=== PATIENT | female | born 1955 | race Caucasian/White ===

== ENCOUNTER 2017-04-20 12:54 | Emergency (ER) | payer MEDICARE, MEDICAID ==
[2017-04-20] MEDS ORDERED: Adacel (T-DAP) 0.5 ML VIAL ONE (14:12)
[2017-04-20] MEDS ORDERED: Bacitracin Zinc 1 Packet ONE (14:16)
== END 2017-04-20 14:28 | disposition home or self-care (01) ==
LOC: ERS 12:54
DX: S61.011A Laceration without foreign body of right thumb without damage to nail, initial encounter (principal); J44.9 Chronic obstructive pulmonary disease, unspecified; F32.9 Major depressive disorder, single episode, unspecified; E78.00 Pure hypercholesterolemia, unspecified; F17.210 Nicotine dependence, cigarettes, uncomplicated; Z79.899 Other long term (current) drug therapy; X58.XXXA Exposure to other specified factors, initial encounter
CPT/HCPCS: 90471; 90715

== ENCOUNTER 2017-07-05 08:38 | Outpatient (CLI) | payer MEDICARE, MEDICAID | END 2017-07-05 08:39 | disposition home or self-care (01) | LOC: BICULT 08:38 | PROVIDERS: ATTEND Urology | DX: N28.1 Cyst of kidney, acquired (principal) | CPT/HCPCS: 76770 ==

== ENCOUNTER 2017-10-23 13:02 | Outpatient (CLI) | payer MEDICARE, MEDICAID ==
--- NOTE | 2017-10-23 13:52 | RAD ---
PA AND LATERAL CHEST: History: Dyspnea. FINDINGS: Comparison is made with exam 01-19-17. The heart size is normal. The aorta is tortuous. The lungs are well expanded without focal areas of c onsolidation, pneumothorax, or pleural effusions. Lumbar degenerative change in the spine. IMPRESSION: Stable exam. No acute process. POS: [facility]
== END 2017-10-23 13:03 | disposition home or self-care (01) ==
LOC: RAD 13:02
PROVIDERS: ATTEND Internal Medicine Critical Care Medicine
DX: R06.00 Dyspnea, unspecified (principal)
CPT/HCPCS: 71046

== ENCOUNTER 2017-11-21 14:21 | Inpatient (IN) | payer MEDICARE, MEDICAID ==
--- NOTE | 2017-11-21 14:51 | RAD ---
CHEST TWO VIWES: History: Cough. Comparison: 10-23-17 FINDINGS: Cardiac silhouette is unremarkable. Pulmonary vasculature upper limits of normal. Lungs remain hyperi nflated. Mediastinum is midline. No confluent airspace consolidation, pneumothorax, or pleural fluid. 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 IMPRESSION: COPD. Chronic type findings are stable. POS: [facility]
--- NOTE | 2017-11-21 15:47 | CT ---
CT CHEST WITHOUT CONTRAST: History: Productive cough for four days associated with chills. Technique: Multiple contiguous axial images were obtained in a CT of the chest without contrast. Huber nal reformats were performed. FINDINGS: There are peripheral areas of airspace opacity in the lingula and right upper lobe. These may represe nt focal infiltrates. No pleural effusion or pneumothorax are seen. The heart is normal in size. Calcifications are seen in the coronary arteries and aorta. No hilar or mediastinal lymphadenopathy are appreciated on this limited noncontrast examination. The visualizes subdiaphragmatic structures are unremarkable. Degenerative changes are seen in the spi ne. The chest wall soft tissues are unremarkable. IMPRESSION: Right upper lobe and lingular peripheral airspace opacities may represent early infiltrate. POS: [facility]
[2017-11-21 16:20] LABS: #Eosinphils 0.1 thou/uL (0.0-0.7); #Monocytes 0.9 thou/uL (0.11-0.59); %Basophils 0.1 % (0.0-1.0); %Eosinophils 0.7 % (0.0-10.0); %Lymphocytes 19.6 % (21.0-51.0); %Monocytes 9.2 % (0.0-10.0); %Neutrophils 70.4 % (42.0-75.0); Hemoglobin 12.9 g/dL (12.0-16.0); Mean Corpuscular HGB CONC 33.9 g/dL (32.0-36.0); Mean Corpuscular Volume 97.4 fL (78.0-98.0); Mean Platelet Volume 6.9 fL (7.4-10.4); Platelet Count 223 thou/uL (130-400); RBC Distribution Width 12.7 % (11.5-14.5); Red Blood Cell (RBC) Count 3.91 mill/uL (4.20-5.40); White Blood Cell (WBC) Count 9.9 thou/uL (4.8-10.8)
[2017-11-21 16:39] LABS: ALT (SGPT) 12 U/L (8-55); AST (SGOT) 10 U/L (5-34); Albumin 3.5 g/dL (3.5-5.0); Alkaline Phosphatase 83 U/L (40-150); Anion Gap 11 mmol/L (10-20); BUN (Urea Nitrogen) 11 mg/dL (9.8-20.1); Bilirubin, Total 0.3 mg/dL (0.2-1.2); Calc. Creatinine Clearance 0 mL/min (70-130); Calcium 8.9 mg/dL (7.8-10.44); Carbon Dioxide 26 mmol/L (22-29); Chloride 107 mmol/L (98-107); Estimated GFR-MDRD 81; Globulin 2.9 g/dL (2.4-3.5); Glucose 112 mg/dL (70-105); Potassium 3.5 mmol/L (3.5-5.1); Protein, Total 6.4 g/dL (6.0-8.3); Sodium 140 mmol/L (136-145)
[2017-11-21] MEDS ORDERED: Azithromycin 500 MG VIAL ONE (16:39)
[2017-11-21 16:44] LABS: CKMB 1.4 ng/mL (0-6.6); Troponin I Less than 0.010 ng/mL (< 0.028)
[2017-11-21] MEDS ORDERED: cefTRIAXone\\ROCEPHIN 2 GM in Sodium Chloride 0.9% 100 ML IVPB SCH (17:00)
[2017-11-21 19:53] VITALS: BMI 33.3
[2017-11-21] MEDS ORDERED: Ondansetron HCl/PF 4 MG/2 ML Vial IVP PRN (20:10)
[2017-11-21] MEDS ORDERED: Ondansetron ODT 4 MG TAB SL PRN (20:10)
[2017-11-21] MEDS ORDERED: Fluticasone Propionate HFA 44 MCG AER INH SCH (21:00)
[2017-11-21] MEDS: Pramipexole Di-HCl 0.25 MG TAB PO SCH (21:19)
[2017-11-21] MEDS: TROSPIUM 20 MG TABLET PO SCH (21:20)
[2017-11-21] MEDS: Gabapentin 300 MG CAP PO SCH (21:20)
[2017-11-21] MEDS: Atorvastatin Calcium 10 MG TAB PO SCH (21:20)
[2017-11-21] MEDS: Acetaminophen 325 MG TAB PO PRN (21:20)
--- NOTE | 2017-11-21 22:17 | HP ---
CODE STATUS: Patient is FULL CODE. PRIMARY CARE PHYSICIAN: Dr. Villalobos. TIME OF EVALUATION: 7:40 p.m. CHIEF COMPLAINT: Worsening cough and shortness of breath. HISTORY OF PRESENT ILLNESS: This is a 62-year-old female with past medical history of COPD, longtime smoker, came to the hospital after having worsening moderate to severe cough, that has been present for 4 days, associated with greenish sputum, and also associated with pleuritic chest pain that is wo rsened by cough, no relieving symptoms. She tried her medication for COPD at home, but she was not g etting better. REVIEW OF SYSTEMS: Constitutional: The patient had fever, chills, generalized weakness. Respirator y: Cough, sputum, pleuritic chest pain, shortness of breath. Cardiovascular: No chest pain, palpit ation. Gastrointestinal: No nausea, no vomiting, no diarrhea or abdominal pain. 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 Genitourinary: No burning on urination. Extremities: No leg swel ling. All other systems reviewed were negative except for the findings mentioned above. PAST MEDICAL HISTORY: Patient has a history of COPD, high cholesterol, ovarian cancer. PAST SURGICAL HISTORY: Hysterectomy. PSYCHIATRIC HISTORY: Depression. SOCIAL HISTORY: Patient does smoke on a daily basis, 1 pack per day, drinks socially, not frequently . ALLERGIES: No known drug allergies reported. MEDICATIONS: Levothyroxine, albuterol. PHYSICAL EXAMINATION: VITAL SIGNS: On presentation, blood pressure 99/60 with heart rate 82, respiratory rate was 18, temp erature 97.6. GENERAL APPEARANCE: Patient was alert and oriented, not in any acute distress. HEENT: Eyes, normal conjunctivae, moist oral mucosa, anicteric. NECK: No JVD. RESPIRATORY: Bilateral air entry is decreased. Patient has scattered wheezes, no rales. Symmetric expansion that is decreased. CARDIOVASCULAR: Normal rate, regular rhythm, no murmur, no gallop, no edema. ABDOMEN: Soft, normal bowel sounds. MUSCULOSKELETAL: Baseline range of motion and strength. No tenderness. SKIN: Warm and intact. No pallor, no rash, no redness. NEUROLOGIC: Baseline sensorium. No evidence of any new focal weakness. Baseline speech. Cranial n erve, sensory intact. PSYCHIATRIC: The patient is in good mood. No anxiety. Oriented. Optimal judgment. LABORATORY DATA: Reviewed. The patient has white count 9.9, hemoglobin 12.9, platelet count 223. S odium 140, potassium 3.5, chloride 107, carbon dioxide 26, anion gap 11, BUN 11, creatinine 0.73, GFR 81, glucose 112. Lactic acid 1.2, calcium 8.9, total bilirubin 0.3. LFTs were normal. Troponin wa s negative. Beta natriuretic peptide 142. EKG was reviewed. The patient has normal sinus rhythm at a rate of 80 with a NM 164, QRS 80, QT corrected 435, otherwise normal EKG. The chest CT was done. The patient had right upper lobe and lingular peripheral airspace opacities that may represent early infiltrate. Chest x-ray was done and showed chronic type findings or COPD. ASSESSMENT AND PLAN: The patient will be placed in the hospital following medical problems. 1. Chronic obstructive pulmonary disease exacerbation. The patient has cough, increased sputum prod uction, shortness of breath, not relieving with regular medications, bilateral wheezing,. We will pl simon the patient on nebs, steroids and antibiotics. We will adjust treatment as needed. The patient tolerated nasal cannula as of now. 2. Right upper lobe pneumonia as seen on the CAT scan. Patient has general green sputum production, we will follow cultures, antibiotics have been started. Adjust treatment as per sensitivity. 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 4. Hyperglycemia with glucose 112, it is mild, no need for any acute intervention likely secondary t o acute physical distress. 5. Deep venous thrombosis prophylaxis. RISK ASSESSMENT: Patient is high risk for exacerbation of COPD, severe, not improving with her home medications .
[2017-11-22] MEDS: Acetaminophen 325 MG TAB PO PRN ×2 (04:58→21:24)
[2017-11-22] MEDS: Levothyroxine Sodium 75 MCG TAB PO SCH (04:58)
[2017-11-22] MEDS ORDERED: Albuterol Sulfate 1.25 MG/3 ML NEB NEB SCH (06:30)
[2017-11-22] MEDS: TROSPIUM 20 MG TABLET PO SCH ×2 (08:04→21:19)
[2017-11-22] MEDS: Gabapentin 300 MG CAP PO SCH ×3 (08:05→21:20)
[2017-11-22] MEDS: Pramipexole Di-HCl 0.25 MG TAB PO SCH ×2 (09:11→21:19)
[2017-11-22] MEDS ORDERED: Mag-Al 1200 mg/1200 mg/30 ML UDCUP PO PRN (15:28)
[2017-11-22] MEDS ORDERED: Senokot 8.6 MG TAB PO PRN (15:28)
[2017-11-22] MEDS ORDERED: Milk Of Magnesia 30 ML UDCUP PO PRN (15:28)
[2017-11-22] MEDS ORDERED: Calcium Carbonate 500 MG ChewTAB PO PRN (15:28)
[2017-11-22] MEDS ORDERED: Ondansetron ODT 4 MG TAB PO PRN (15:28)
[2017-11-22] MEDS ORDERED: Azithromycin 500 MG in Sodium Chloride 0.9% 250 ML 250 ML IVPB SCH (17:00)
[2017-11-22] MEDS: Nicotine 14 MG PATCH TD SCH (17:33)
[2017-11-22] MEDS ORDERED: cefTRIAXone\\ROCEPHIN 1 GM in Sodium Chloride 0.9% 100 ML IVPB SCH (18:00)
[2017-11-22] MEDS: guaiFENesin ER 600 MG TAB PO SCH (21:19)
[2017-11-22] MEDS: Atorvastatin Calcium 10 MG TAB PO SCH (21:19)
[2017-11-22] MEDS: Famotidine 20 MG TAB PO SCH (21:20)
--- NOTE | 2017-11-22 21:40 | PDOC.PN ---
- Subjective Encounter Start Date: 11/22/17 Encounter Start Time: 16:00 Patient seen and examined for Resp failure. No new complaints. No overnight events - Objective Resuscitation Status: Resuscitation Status FULL:Full Resuscitation MAR Reviewed: Yes Vital Signs & Weight: Vital Signs (12 hours) Temp Pulse Resp BP Pulse Ox 11/22/17 20:00 97.4 F L 70 20 125/76 96 11/22/17 18:21 74 18 91 L 11/22/17 16:00 97.5 F L 70 20 122/77 92 L Weight Admit Weight 176 lb 5.917 oz Weight 176 lb 5.917 oz I&O: 11/21/17 11/22/17 11/23/17 06:59 06:59 06:59 Intake Total 720 1310 Balance 720 1310 Result Diagrams: 11/23/17 04:12 11/23/17 04:12 Radiology Reviewed by me: Yes (CT chest - RUL and lingular infiltrate) Phys Exam - Physical Examination Constitutional: NAD Neck: no JVD Respiratory: wheezing present Scat rale/rhonchi +, No significant accessory muscle use Cardiovascular: RRR, no rub No heaves/pulsations Gastrointestinal: soft, non-tender, no distention, positive bowel sounds Musculoskeletal: no edema Neurological: non-focal, normal sensation, moves all 4 limbs Psychiatric: normal affect, A&O x 3 Dx/Plan - Plan DVT proph w/SCDs IMPRESSION: 1. Acute hypoxic Resp failure 2. COPD Exacerbation 3. Pneumonia in RUL and lingula ?Pneumococcal 4. HLD 5. Restless leg syndrome / Tobacco dep / Obesity BMI 33.3 / history of ovarian Ca/ Depression/ Overactive bladder PLAN: Cont IV Ceftriaxone and Azithromycin Reduce Solumedrol dose to 20 mg Q8h Change Nebs to Duonebs Q4 Add Pepcid while on Steroids Cont other home meds as below Vitals Q4h Full code Add Mucinex AM labs Add Nicotin patch per patient req Review of Systems - Review of Systems Respiratory: Cough, Dry, SOB with Excertion, Sputum, Wheezing Cardiovascular: negative: chest pain, palpitations, orthopnea, paroxysmal nocturnal dyspnea, edema, light headedness, other Gastrointestinal: negative: Nausea, Vomiting, Abdominal Pain, Diarrhea, Constipation, Melena, Hematochezia, Other - Medications/Allergies Allergies/Adverse Reactions: Allergies Allergy/AdvReac Type Severity Reaction Status Date / Time No Known Allergies Allergy Verified 11/21/17 19:53 Medications: Current Medications Acetaminophen (Tylenol) 650 mg PO Q4H PRN PRN Reason: Headache/Fever or Pain Last Admin: 11/22/17 21:24 Dose: 650 mg Al Hydroxide/Mg Hydroxide (Maalox) 30 ml PO Q6H PRN PRN Reason: Heartburn or Indigestion Albuterol/Ipratropium (Duoneb) 3 ml NEB [id number] [facility] Last Admin: 11/22/17 18:21 Dose: 3 ml Albuterol/Ipratropium (Duoneb) 3 ml NEB [id number] PRN PRN Reason: SOB &/or Wheezing Atorvastatin Calcium (Lipitor) 10 mg PO QPM [facility] Last Admin: 11/22/17 21:19 Dose: 10 mg Calcium Carbonate (Tums) 1,000 mg PO Q4H PRN PRN Reason: Heartburn or Indigestion Famotidine (Pepcid) 20 mg PO BID [facility] Last Admin: 11/22/17 21:20 Dose: 20 mg Gabapentin (Neurontin) 300 mg PO TID [facility] Last Admin: 11/22/17 21:20 Dose: 300 mg Guaifenesin (Mucinex) 600 mg PO Q12HR [facility] Last Admin: 11/22/17 21:19 Dose: 600 mg Azithromycin 500 mg/ Sodium (Chloride) 250 mls @ 250 mls/hr IVPB 1700 [facility] Last Admin: 11/22/17 18:15 Dose: 250 mls Ceftriaxone Sodium 1 gm/ (Sodium Chloride) 100 mls @ 200 mls/hr IVPB 1800 [facility] Last Admin: 11/22/17 17:33 Dose: 100 mls Levothyroxine Sodium (Synthroid) 75 mcg PO 0600 [facility] Last Admin: 11/22/17 04:58 Dose: 75 mcg Loperamide HCl (Imodium) 2 mg PO ASDIR PRN PRN Reason: Diarrhea/Loose Stools Magnesium Hydroxide (Milk Of Magnesium) 30 ml PO DAILYPRN PRN PRN Reason: Constipation Methylprednisolone Sodium Succinate (Solu-Medrol) 20 mg IVP Q8HR [facility] Last Admin: 11/22/17 21:20 Dose: 20 mg Nicotine (Nicoderm Patch) 14 mg TD Q24HR [facility] Last Admin: 11/22/17 17:33 Dose: 14 mg Ondansetron HCl (Zofran Odt) 4 mg PO Q6H PRN PRN Reason: Nausea/Vomiting Pramipexole Dihydrochloride (Mirapex) 0.25 mg PO DAILY [facility] Last Admin: 11/22/17 09:11 Dose: 0.25 mg Pramipexole Dihydrochloride (Mirapex) 0.5 mg PO HS [facility] Last Admin: 11/22/17 21:19 Dose: 0.5 mg Senna (Senokot) 2 tab PO HSPRN PRN PRN Reason: Constipation Sertraline HCl (Zoloft) 50 mg PO HS [facility] Last Admin: 11/22/17 21:19 Dose: 50 mg Trospium (Trospium) 20 mg PO BID [facility] Last Admin: 11/22/17 21:19 Dose: 20 mg
[2017-11-23] MEDS: Acetaminophen 325 MG TAB PO PRN ×2 (04:37→13:37)
[2017-11-23] MEDS: Levothyroxine Sodium 75 MCG TAB PO SCH (04:56)
[2017-11-23 05:58] LABS: Anion Gap 13 mmol/L (10-20); BUN (Urea Nitrogen) 12 mg/dL (9.8-20.1); Calc. Creatinine Clearance 113 mL/min (70-130); Calcium 9.9 mg/dL (7.8-10.44); Carbon Dioxide 25 mmol/L (22-29); Chloride 107 mmol/L (98-107); Estimated GFR-MDRD 90; Glucose 145 mg/dL (70-105); Magnesium 2.1 mg/dL (1.6-2.6); Potassium 4.2 mmol/L (3.5-5.1); Sodium 141 mmol/L (136-145)
[2017-11-23 06:20] LABS: Band 28 % (5-11); Hemoglobin 13.1 g/dL (12.0-16.0); Lymphocytes 16 % (21-51); MDiff Complete? YES; Mean Corpuscular HGB CONC 32.8 g/dL (32.0-36.0); Mean Corpuscular Volume 97.6 fL (78.0-98.0); Mean Platelet Volume 7.1 fL (7.4-10.4); Monocytes 5 % (0-10); Neutrophil 51 % (42-75); Platelet Count 276 thou/uL (130-400); RBC Distribution Width 12.6 % (11.5-14.5); White Blood Cell (WBC) Count 11.5 thou/uL (4.8-10.8)
[2017-11-23] MEDS: TROSPIUM 20 MG TABLET PO SCH ×2 (08:14→20:45)
[2017-11-23] MEDS: Famotidine 20 MG TAB PO SCH ×2 (08:14→20:45)
[2017-11-23] MEDS: guaiFENesin ER 600 MG TAB PO SCH ×2 (08:14→20:45)
[2017-11-23] MEDS: Pramipexole Di-HCl 0.25 MG TAB PO SCH ×2 (08:14→17:19)
[2017-11-23] MEDS: Gabapentin 300 MG CAP PO SCH ×3 (08:14→20:45)
--- NOTE | 2017-11-23 15:21 | PDOC.PN ---
- Subjective Encounter Start Date: 11/23/17 Encounter Start Time: 12:30 Patient seen and examined for COPD exacerbation/Resp failure/Pneumonia. SOB improving. Productive cough +. No overnight events - Objective Resuscitation Status: Resuscitation Status FULL:Full Resuscitation MAR Reviewed: Yes Vital Signs & Weight: Vital Signs (12 hours) Temp Pulse Resp BP Pulse Ox 11/23/17 12:00 97.6 F 77 18 121/72 94 L 11/23/17 10:45 85 20 94 L 11/23/17 08:10 97.7 F 87 22 H 94 L 11/23/17 07:41 97.7 F 87 22 H 131/74 94 L 11/23/17 07:00 88 16 94 L 11/23/17 04:00 97.4 F L 67 16 107/65 98 Weight Admit Weight 176 lb 5.917 oz Weight 176 lb 5.917 oz I&O: 11/22/17 11/23/17 11/24/17 06:59 06:59 06:59 Intake Total 720 2030 Balance 720 2030 Result Diagrams: 11/23/17 04:12 11/23/17 04:12 EKG Reviewed by me: Yes (Tele SR) Phys Exam - Physical Examination Constitutional: NAD Respiratory: no wheezing, no rhonchi Cardiovascular: RRR, no rub Gastrointestinal: soft, no distention Musculoskeletal: no edema Neurological: moves all 4 limbs Dx/Plan - Plan DVT proph w/SCDs IMPRESSION: 1. Acute hypoxic Resp failure 2. COPD Exacerbation 3. Pneumonia in RUL and lingula ?Pneumococcal 4. HLD 5. Restless leg syndrome / Tobacco dep / Obesity BMI 33.3 / history of ovarian Ca/ Depression/ Overactive bladder PLAN: Cont O2/Ceftriaxone/Azithromycin/Solumedrol/Nebs Cont current meds as below [facility] O2 assessment Review of Systems - Review of Systems Respiratory: negative: Cough, Dry, Shortness of Breath, Hemoptysis, SOB with Excertion, Pleuritic Pain, Sputum, Wheezing Cardiovascular: negative: chest pain, palpitations, orthopnea, paroxysmal nocturnal dyspnea, edema, light headedness, other - Medications/Allergies Allergies/Adverse Reactions: Allergies Allergy/AdvReac Type Severity Reaction Status Date / Time No Known Allergies Allergy Verified 11/21/17 19:53 Medications: Current Medications Acetaminophen (Tylenol) 650 mg PO Q4H PRN PRN Reason: Headache/Fever or Pain Last Admin: 11/23/17 13:37 Dose: 650 mg Al Hydroxide/Mg Hydroxide (Maalox) 30 ml PO Q6H PRN PRN Reason: Heartburn or Indigestion Albuterol/Ipratropium (Duoneb) 3 ml NEB [id number] [facility] Last Admin: 11/23/17 14:15 Dose: Not Given Albuterol/Ipratropium (Duoneb) 3 ml NEB [id number] PRN PRN Reason: SOB &/or Wheezing Atorvastatin Calcium (Lipitor) 10 mg PO QPM [facility] Last Admin: 11/22/17 21:19 Dose: 10 mg Calcium Carbonate (Tums) 1,000 mg PO Q4H PRN PRN Reason: Heartburn or Indigestion Cefuroxime Axetil (Ceftin) 250 mg PO Q12HR [facility] Famotidine (Pepcid) 20 mg PO BID [facility] Last Admin: 11/23/17 08:14 Dose: 20 mg Gabapentin (Neurontin) 300 mg PO TID [facility] Last Admin: 11/23/17 15:02 Dose: 300 mg Guaifenesin (Mucinex) 600 mg PO Q12HR [facility] Last Admin: 11/23/17 08:14 Dose: 600 mg Levothyroxine Sodium (Synthroid) 75 mcg PO 0600 [facility] Last Admin: 11/23/17 04:56 Dose: 75 mcg Loperamide HCl (Imodium) 2 mg PO ASDIR PRN PRN Reason: Diarrhea/Loose Stools Magnesium Hydroxide (Milk Of Magnesium) 30 ml PO DAILYPRN PRN PRN Reason: Constipation Methylprednisolone Sodium Succinate (Solu-Medrol) 20 mg IVP Q8HR [facility] Last Admin: 11/23/17 13:38 Dose: 20 mg Nicotine (Nicoderm Patch) 14 mg TD Q24HR [facility] Last Admin: 11/22/17 17:33 Dose: 14 mg Ondansetron HCl (Zofran Odt) 4 mg PO Q6H PRN PRN Reason: Nausea/Vomiting Pramipexole Dihydrochloride (Mirapex) 0.25 mg PO DAILY [facility] Last Admin: 11/23/17 08:14 Dose: 0.25 mg Pramipexole Dihydrochloride (Mirapex) 0.5 mg PO 1800 [facility] Senna (Senokot) 2 tab PO HSPRN PRN PRN Reason: Constipation Sertraline HCl (Zoloft) 50 mg PO HS [facility] Last Admin: 11/22/17 21:19 Dose: 50 mg Trospium (Trospium) 20 mg PO BID [facility] Last Admin: 11/23/17 08:14 Dose: 20 mg
[2017-11-23] MEDS: Nicotine 14 MG PATCH TD SCH (17:15)
[2017-11-23] MEDS: Atorvastatin Calcium 10 MG TAB PO SCH (20:45)
[2017-11-23] MEDS: Cefuroxime Axetil 250 MG TAB PO SCH (20:50)
--- NOTE | 2017-11-23 22:01 | CON ---
DATE OF CONSULTATION: 11/23/2017 HISTORY: Ms. Aponte is very pleasant 62-year-old female. She is a smoker. She presented with shortness of breath. Chest radiograph is unremarkable. CT imaging shows two ground glass infiltrates that are about the size of a quarter. She has been admitted with a diagnosis of pneumonia and COPD exacerbation on the . I was consulted to assist in her management. PAST MEDICAL HISTORY: Remarkable for lipid disorder, ovarian cancer as well as a hysterectomy. SOCIAL HISTORY: She denies ever having pulmonary function tests. She is a pack a day smoker. Drinks rarely. She does not use drugs. FAMILY HISTORY: Noncontributory ALLERGIES: She has no drug allergies. MEDICATIONS PRIOR TO ADMISSION: Synthroid, and albuterol. REVIEW OF SYSTEMS: Ten points otherwise negative. PHYSICAL EXAMINATION: GENERAL: She is afebrile, heart rate is 77, respiratory rate is 18, oximetry is 94 on 2 liters, blood pressure 121/72. HEENT: Pupils are equal. Sclerae anicteric. NECK: Supple, no lymphadenopathy. LUNGS: Remarkable for distant breath sounds. She does not have a prolonged expiratory phase. HEART: Regular rhythm. S1 and S2 are normal. ABDOMEN: Soft and nontender. EXTREMITIES: Without clubbing, cyanosis, or edema. NEUROLOGIC: Grossly nonfocal. LABORATORY DATA: White count 11.5, hemoglobin 13.0, platelets 276. Sodium 141 , potassium 4.2, chloride 107, bicarbonate 25, BUN 12, creatinine 0.6, glucose 145. IMAGING: CT and chest radiograph reviewed by me. IMPRESSION: 1. Chronic obstructive pulmonary disease exacerbation with bronchitis plus focal area of perhaps pneumonia. 2. We will switch her to p.o. antibiotics. She can be switched to p.o. steroids tomorrow and hopefully discharged home. She has a good night. She will need a followup CT in 2-3 months to document clearing of these nodular infiltrates. We will try to get PFTs to see if we can quantitate her FEV1 today. TIME SPENT: A 50-minute consult greater than 50% of the time was spent in coordinating care. XIANG
[2017-11-24] MEDS: Levothyroxine Sodium 75 MCG TAB PO SCH (05:05)
[2017-11-24] MEDS: Loperamide HCl 2 MG CAP PO PRN (05:11)
[2017-11-24] MEDS: guaiFENesin ER 600 MG TAB PO SCH ×2 (08:56→19:50)
[2017-11-24] MEDS: Famotidine 20 MG TAB PO SCH ×2 (08:56→19:49)
[2017-11-24] MEDS: Cefuroxime Axetil 250 MG TAB PO SCH ×2 (08:56→19:50)
[2017-11-24] MEDS: Gabapentin 300 MG CAP PO SCH ×3 (08:56→19:49)
[2017-11-24] MEDS: TROSPIUM 20 MG TABLET PO SCH ×2 (08:56→19:48)
[2017-11-24] MEDS: Pramipexole Di-HCl 0.25 MG TAB PO SCH ×2 (08:56→17:40)
--- NOTE | 2017-11-24 10:30 | PRG ---
DATE OF SERVICE: 11/24/2017 Ms. Aponte is doing better. She denies shortness of breath. She walked out to the parking lot to clare t her daughter today. Without her oxygen, her oximetry is in the mid 90s to low 90s on 2 liters. Matt valdovinos will probably need to be on oxygen when she goes home at least for a short period of time. PHYSICAL EXAMINATION: VITAL SIGNS: She is afebrile, heart rate 70, respiratory 20, blood pressure 145/77. LUNGS: Lungs are clear today. HEART: Regular rhythm. ABDOMEN: Abdomen is soft. She is complaining of right lower quadrant discomfort, but I did not find any tenderness when I examined her. I suspect she pulled a muscle with her coughing, but this proba yady needs to be further evaluated with abdominal imaging such as CT scanning. She is not all of Lovenox so abdominal complaints from retroperitoneal bleed would not be in the diff erential. She is on p.o. antibiotics now. Her IV antibiotics can be discontinued. If her workup for abdominal discomfort is negative she could be discharged home to follow up with me in 3-4 weeks. She needs to follow up with Dr. Villalobos in 2 weeks. We will need to do another CT in 2-3 months to document clearing of these nodular infiltrates. Chun valdovinos explained this to her and her [id number]. I have also has asked her to explain to her childre n that her COPD will likely be an issue in their lives. Her FEV1 was just over 60% of predicted. I suspect this will more likely be COPD than asthma. I do expect if she can stay away from cigarettes and improve that we will be able to wean her off oxygen here within the next month.
[2017-11-24] MEDS ORDERED: ISOVUE-370 76%-LOCM 1 ML ONE (14:42)
--- NOTE | 2017-11-24 17:33 | CT ---
CT OF THE ABDOMEN AND PELVIS WITH IV CONTRAST: 11/24/17 INDICATION: Diarrhea and abdominal pain. COMPARISON: Prior exam dated 11/17/14. FINDINGS: There is mild right basilar atelectasis. There is a 1.3 cm enhancing lesion involving segment 5 of the right hepatic lobe. This is stable sinc e 2014 likely reflecting small flash filling hemangioma. Adrenal glands and kidneys reveal no definit e acute abnormality. There is small cysts bilaterally. The pancreas and adrenal glands are within no rmal limits. There is fluid density within the colon can be seen with diarrheal states or possibly a mild colitis. No drainable fluid collection is evident. There is a normal appendix in the right lower quadrant. Sm all bowel is of normal caliber. There are moderate calcifications involving the abdominopelvic vasculature. There are multiple phleboliths within the lower pelvis. No definite acute osseous abnormality is evid ent. IMPRESSION: 1. Fluid density seen within the colon can be seen with diarrheal states or mild colitis. 2. Small enhancing lesion within segment V right hepatic lobe is stable to a comparison in 2014 and likely reflecting small flash filling type hemangioma. 3. Small renal cyst 4. Other chronic findings as above. POS: [facility]
[2017-11-24] MEDS: Nicotine 14 MG PATCH TD SCH (17:40)
[2017-11-24] MEDS: Atorvastatin Calcium 10 MG TAB PO SCH (19:50)
[2017-11-24] MEDS ORDERED: metroNIDAZOLE 500 MG TAB PO SCH (22:00)
[2017-11-24] MEDS ORDERED: Saccharomyces boulardii 250 MG CAP PO SCH (22:00)
--- NOTE | 2017-11-24 22:01 | PDOC.PN ---
- Subjective Encounter Start Date: 11/24/17 Encounter Start Time: 13:00 Patient seen and examined for Resp failure. New Rt sided abd pain with diarrhea since last night. No overnight events - Objective Resuscitation Status: Resuscitation Status FULL:Full Resuscitation MAR Reviewed: Yes Vital Signs & Weight: Vital Signs (12 hours) Temp Pulse Resp BP Pulse Ox 11/24/17 20:00 97.4 F L 90 16 11/24/17 19:53 97.4 F L 90 16 127/79 91 L 11/24/17 19:04 96 16 93 L 11/24/17 15:55 98.5 F 79 20 160/85 H 92 L 11/24/17 12:28 97.9 F 78 20 156/90 H 93 L 11/24/17 10:08 82 16 92 L Weight Admit Weight 176 lb 5.917 oz Weight 176 lb 5.917 oz I&O: 11/23/17 11/24/17 11/25/17 06:59 06:59 06:59 Intake Total 2029 2160 1000 Balance 2029 2160 1000 Result Diagrams: 11/25/17 04:16 11/25/17 04:16 Phys Exam - Physical Examination Constitutional: NAD Respiratory: no wheezing, no rhonchi Cardiovascular: RRR, no rub Gastrointestinal: soft, positive bowel sounds Rt sided tenderness, No guarding/redbound Musculoskeletal: no edema Neurological: non-focal, moves all 4 limbs Psychiatric: A&O x 3 Dx/Plan - Plan DVT proph w/SCDs IMPRESSION: 1. New Rt sided abd pain with diarrhea 2. Acute hypoxic Resp failure /COPD Exacerbation /Pneumonia in RUL and lingula ? Pneumococcal 3. HLD 4. Restless leg syndrome / Tobacco dep / Obesity BMI 33.3 / history of ovarian Ca/ Depression/ Overactive bladder PLAN: CT abd pelvis with contrast (oral and IV) Check stool for Cdiff Cont other meds as below Cont O2/Ceftin/Solumedrol/Nebs Arrange for home O2 Ambulate Home O2 assessment Review of Systems - Review of Systems Respiratory: negative: Cough, Dry, Shortness of Breath, Hemoptysis, SOB with Excertion, Pleuritic Pain, Sputum, Wheezing Cardiovascular: negative: chest pain, palpitations, orthopnea, paroxysmal nocturnal dyspnea, edema, light headedness, other - Medications/Allergies Allergies/Adverse Reactions: Allergies Allergy/AdvReac Type Severity Reaction Status Date / Time No Known Allergies Allergy Verified 11/21/17 19:53 Medications: Current Medications Acetaminophen (Tylenol) 650 mg PO Q4H PRN PRN Reason: Headache/Fever or Pain Last Admin: 11/23/17 13:37 Dose: 650 mg Al Hydroxide/Mg Hydroxide (Maalox) 30 ml PO Q6H PRN PRN Reason: Heartburn or Indigestion Albuterol/Ipratropium (Duoneb) 3 ml NEB [id number] [facility] Last Admin: 11/24/17 19:04 Dose: 3 ml Albuterol/Ipratropium (Duoneb) 3 ml NEB [id number] PRN PRN Reason: SOB &/or Wheezing Atorvastatin Calcium (Lipitor) 10 mg PO QPM [facility] Last Admin: 11/24/17 19:50 Dose: 10 mg Calcium Carbonate (Tums) 1,000 mg PO Q4H PRN PRN Reason: Heartburn or Indigestion Cefuroxime Axetil (Ceftin) 250 mg PO Q12HR [facility] Last Admin: 11/24/17 19:50 Dose: 250 mg Famotidine (Pepcid) 20 mg PO BID [facility] Last Admin: 11/24/17 19:49 Dose: 20 mg Gabapentin (Neurontin) 300 mg PO TID [facility] Last Admin: 11/24/17 19:49 Dose: 300 mg Guaifenesin (Mucinex) 600 mg PO Q12HR [facility] Last Admin: 11/24/17 19:50 Dose: 600 mg Levothyroxine Sodium (Synthroid) 75 mcg PO 0600 [facility] Last Admin: 11/24/17 05:05 Dose: 75 mcg Loperamide HCl (Imodium) 2 mg PO ASDIR PRN PRN Reason: Diarrhea/Loose Stools Last Admin: 11/24/17 05:11 Dose: 2 mg Magnesium Hydroxide (Milk Of Magnesium) 30 ml PO DAILYPRN PRN PRN Reason: Constipation Metronidazole (Flagyl) 500 mg PO TID [facility] Metronidazole (Flagyl) 500 mg PO ONE [facility] Nicotine (Nicoderm Patch) 14 mg TD Q24HR [facility] Last Admin: 11/24/17 17:40 Dose: 14 mg Ondansetron HCl (Zofran Odt) 4 mg PO Q6H PRN PRN Reason: Nausea/Vomiting Pramipexole Dihydrochloride (Mirapex) 0.25 mg PO DAILY [facility] Last Admin: 11/24/17 08:56 Dose: 0.25 mg Pramipexole Dihydrochloride (Mirapex) 0.5 mg PO 1800 [facility] Last Admin: 11/24/17 17:40 Dose: 0.5 mg Prednisone (Prednisone) 40 mg PO QAM-WM [facility] Saccharomyces Boulardii (Florastor) 250 mg PO DAILY [facility] Saccharomyces Boulardii (Florastor) 250 mg PO ONE [facility] Senna (Senokot) 2 tab PO HSPRN PRN PRN Reason: Constipation Sertraline HCl (Zoloft) 50 mg PO HS [facility] Last Admin: 11/24/17 19:50 Dose: 50 mg Trospium (Trospium) 20 mg PO BID [facility] Last Admin: 11/24/17 19:48 Dose: 20 mg
[2017-11-25] MEDS: Levothyroxine Sodium 75 MCG TAB PO SCH (04:34)
[2017-11-25 05:01] LABS: #Eosinphils 0.1 thou/uL (0.0-0.7); #Lymphocytes 2.6 thou/uL (1.20-3.40); #Monocytes 0.6 thou/uL (0.11-0.59); #Neutrophils 6.2 thou/uL (1.40-6.50); %Basophils 0.2 % (0.0-1.0); %Eosinophils 0.8 % (0.0-10.0); %Lymphocytes 27.5 % (21.0-51.0); %Monocytes 6.1 % (0.0-10.0); %Neutrophils 65.4 % (42.0-75.0); Hemoglobin 13.2 g/dL (12.0-16.0); Mean Corpuscular HGB CONC 33.2 g/dL (32.0-36.0); Mean Corpuscular Hemoglobin 32.7 pg (27.0-31.0); Mean Corpuscular Volume 98.6 fL (78.0-98.0); Mean Platelet Volume 6.9 fL (7.4-10.4); Platelet Count 288 thou/uL (130-400); RBC Distribution Width 12.9 % (11.5-14.5); Red Blood Cell (RBC) Count 4.04 mill/uL (4.20-5.40); White Blood Cell (WBC) Count 9.4 thou/uL (4.8-10.8)
[2017-11-25 05:19] LABS: ALT (SGPT) 19 U/L (8-55); AST (SGOT) 11 U/L (5-34); Albumin 3.4 g/dL (3.5-5.0); Alkaline Phosphatase 86 U/L (40-150); Anion Gap 12 mmol/L (10-20); BUN (Urea Nitrogen) 12 mg/dL (9.8-20.1); Bilirubin, Total 0.2 mg/dL (0.2-1.2); Calc. Creatinine Clearance 114 mL/min (70-130); Calcium 9.5 mg/dL (7.8-10.44); Carbon Dioxide 27 mmol/L (22-29); Chloride 107 mmol/L (98-107); Estimated GFR-MDRD Greater than 90; Globulin 2.7 g/dL (2.4-3.5); Glucose 87 mg/dL (70-105); Magnesium 2.2 mg/dL (1.6-2.6); Potassium 3.8 mmol/L (3.5-5.1); Protein, Total 6.1 g/dL (6.0-8.3); Sodium 142 mmol/L (136-145)
[2017-11-25] MEDS: Acetaminophen 325 MG TAB PO PRN (05:27)
[2017-11-25] MEDS ORDERED: predniSONE 20 MG TAB PO SCH (08:00)
[2017-11-25] MEDS: Cefuroxime Axetil 250 MG TAB PO SCH (08:25)
[2017-11-25] MEDS: Pramipexole Di-HCl 0.25 MG TAB PO SCH (08:25)
[2017-11-25] MEDS: Loperamide HCl 2 MG CAP PO PRN (08:25)
[2017-11-25] MEDS: guaiFENesin ER 600 MG TAB PO SCH (08:26)
[2017-11-25] MEDS: Gabapentin 300 MG CAP PO SCH (08:26)
[2017-11-25] MEDS: TROSPIUM 20 MG TABLET PO SCH (08:26)
[2017-11-25] MEDS: Famotidine 20 MG TAB PO SCH (08:26)
[2017-11-25] MEDS ORDERED: metroNIDAZOLE 500 MG TAB PO SCH (09:00)
[2017-11-25] MEDS ORDERED: Saccharomyces boulardii 250 MG CAP PO SCH (09:00)
[2017-11-25 14:08] VITALS: BP 127/84; TEMP 97.6
--- NOTE | 2017-11-26 10:49 | DIS ---
DATE OF DISCHARGE: 11/25/2017 DISCHARGE DISPOSITION: Home. FOLLOWUP: Follow up with primary care physician, Dr. Villalobos in 1 week. Follow up with, Dr. Murdock in 3-4 weeks. DISCHARGE INSTRUCTIONS: 1. CT scan of the chest after 2 months is recommended. Primary care physician advised to follow. 2. Tobacco cessation was extensively emphasized. 3. Home oxygen has been arranged. Patient was seen and examined on the day of discharge, denies any new complaints, no chest pain, shor tness of breath or palpitations. BRIEF HOSPITAL COURSE: Patient is a 62-year-old female, COPD with ongoing tobacco abuse who presente d to the hospital with worsening shortness of breath and wheezing. She underwent a CT scan of the est in the emergency room that showed pneumonia in the right upper lobe and lingula. She was started on antibiotic along with steroids, oxygen, and nebulizer treatment with good improvement. Patient w as also evaluated by Dr. Murdock. She will be discharged home on Ceftin along with prednisone taper. A 24 hours prior to discharge, patient started having several episodes of diarrhea. Stool for C. dif f, however, was negative. Due to abdominal discomfort along with diarrhea, a CT scan with oral and I V contrast was performed that showed mild colitis. It also showed some enhancing lesion in the hepat ic lobe, probably hemangioma. Her diarrhea has improved. Low dose Flagyl will be continued for 5 da ys for colitis. She appears stable for discharge. FINAL DIAGNOSES: 1. Acute hypoxic respiratory failure. 2. Chronic obstructive pulmonary disease exacerbation. 3. Community-acquired pneumonia in the right upper lobe and lingula suspected pneumococcal. 4. Right-sided abdominal pain with diarrhea. CT scan was negative for acute findings except for mil d colitis. 5. Hyperlipidemia. 6. Restless leg syndrome. 7. Tobacco dependence. Patient was extensively counseled. 8. Obesity with a BMI of 33. 9. History of ovarian cancer. 10. Depression. 11. Overactive bladder. 12. Small enhancing lesion in the right hepatic lobe, probably hemangioma. Primary care physician a dvised to follow. 13. Small renal cyst. Plan of care was discussed with the patient in detail. She stated understanding. Total time coordinating the discharge of this patient was 33 minutes.
== END 2017-11-25 14:06 | disposition home or self-care (01) | DRG 190 ==
LOC: ERS 14:21 → T4-A 18:53
PROVIDERS: ADMIT Internal Medicine; ATTEND Internal Medicine
DX: J44.1 Chronic obstructive pulmonary disease with (acute) exacerbation (principal); J13 Pneumonia due to Streptococcus pneumoniae; J96.01 Acute respiratory failure with hypoxia; J44.0 Chronic obstructive pulmonary disease with (acute) lower respiratory infection; F17.210 Nicotine dependence, cigarettes, uncomplicated; K52.9 Noninfective gastroenteritis and colitis, unspecified; E78.5 Hyperlipidemia, unspecified; G25.81 Restless legs syndrome; E66.9 Obesity, unspecified; D18.09 Hemangioma of other sites; N28.1 Cyst of kidney, acquired; F32.9 Major depressive disorder, single episode, unspecified; N32.81 Overactive bladder; R73.9 Hyperglycemia, unspecified; J40 Bronchitis, not specified as acute or chronic; Z71.6 Tobacco abuse counseling; Z68.33 Body mass index [BMI] 33.0-33.9, adult; Z85.43 Personal history of malignant neoplasm of ovary; Z99.81 Dependence on supplemental oxygen
CPT/HCPCS: 36415; 71046; 71250; 74177; 80048; 80053; 82553; 83605; 83735; 83880; 84484; 85025; 87324; 87449; 90471; 90732; 93005; 94640; 96365; 96366; 96368; G0009; J0456; J0696; J2920; J7050; J7506; J7620

== ENCOUNTER 2017-11-27 05:42 | Emergency (ER) | payer MEDICARE, MEDICAID ==
[2017-11-27] MEDS ORDERED: Promethazine HCl 25 MG/ML VIAL ONE (06:36)
[2017-11-27] MEDS ORDERED: Morphine 4 MG/ML VIAL ONE (06:36)
[2017-11-27 06:42] LABS: #Basophils 0.1 thou/uL (0.0-0.2); #Eosinphils 0.1 thou/uL (0.0-0.7); #Lymphocytes 4.6 thou/uL (1.20-3.40); #Monocytes 0.7 thou/uL (0.11-0.59); #Neutrophils 7.7 thou/uL (1.40-6.50); %Basophils 0.7 % (0.0-1.0); %Eosinophils 0.6 % (0.0-10.0); %Monocytes 5.1 % (0.0-10.0); %Neutrophils 58.5 % (42.0-75.0); Hemoglobin 15.3 g/dL (12.0-16.0); Mean Corpuscular HGB CONC 33.4 g/dL (32.0-36.0); Mean Corpuscular Hemoglobin 32.1 pg (27.0-31.0); Mean Corpuscular Volume 96.2 fL (78.0-98.0); Mean Platelet Volume 6.5 fL (7.4-10.4); Platelet Count 357 thou/uL (130-400); RBC Distribution Width 12.9 % (11.5-14.5); Red Blood Cell (RBC) Count 4.75 mill/uL (4.20-5.40); White Blood Cell (WBC) Count 13.2 thou/uL (4.8-10.8)
[2017-11-27 07:02] LABS: ALT (SGPT) 23 U/L (8-55); AST (SGOT) 16 U/L (5-34); Albumin 3.9 g/dL (3.5-5.0); Alkaline Phosphatase 85 U/L (40-150); Anion Gap 12 mmol/L (10-20); BUN (Urea Nitrogen) 23 mg/dL (9.8-20.1); Bilirubin, Total 0.3 mg/dL (0.2-1.2); Calc. Creatinine Clearance 0 mL/min (70-130); Calcium 9.3 mg/dL (7.8-10.44); Carbon Dioxide 24 mmol/L (22-29); Chloride 103 mmol/L (98-107); Estimated GFR-MDRD 79; Globulin 2.9 g/dL (2.4-3.5); Glucose 106 mg/dL (70-105); Lipase 13 U/L (8-78); Potassium 3.5 mmol/L (3.5-5.1); Protein, Total 6.8 g/dL (6.0-8.3); Sodium 135 mmol/L (136-145)
[2017-11-27] MEDS ORDERED: cloNIDine 0.1 MG TAB ONE (07:18)
[2017-11-27] MEDS ORDERED: diphenhydrAMINE 50 MG/ML VIAL ONE (07:18)
[2017-11-27 07:40] LABS: Bilirubin Negative (Negative); Blood, Urine Moderate (Negative); Clarity CLEAR (Clear); Glucose, Urine (Dipstick) Negative (Negative); Leukocyte Negative (Negative); Nitrite Negative (Negative); Protein, Urine (Dipstick) Negative (Neg-Trace); Specific Gravity, Urine 1.011 (1.002-1.036); Urobilinogen 0.2 mg/dL (0.2-1.0)
[2017-11-27 07:42] LABS: Bacteria/HPF None Seen HPF (None Seen); Hyaline Casts/LPF 0-3 HYALINE CAST LPF (0-3 Hyaline); RBC/HPF 21-50 HPF (0-3); Squamous Epithelial 0-3 HPF (0-3); WBC/HPF None Seen HPF (0-3)
== END 2017-11-27 09:00 | disposition home or self-care (01) ==
LOC: ERS 05:42
DX: K52.9 Noninfective gastroenteritis and colitis, unspecified (principal); R51 Headache; E78.00 Pure hypercholesterolemia, unspecified; F17.210 Nicotine dependence, cigarettes, uncomplicated; F32.9 Major depressive disorder, single episode, unspecified; J44.9 Chronic obstructive pulmonary disease, unspecified; Z79.899 Other long term (current) drug therapy; Z85.43 Personal history of malignant neoplasm of ovary
CPT/HCPCS: 36415; 80053; 81003; 81015; 83690; 85025; 96365; 96366; 96372; 96375; J1200; J2270; J2550

== ENCOUNTER 2018-01-03 09:42 | Outpatient (CLI) | payer MEDICARE, MEDICAID ==
--- NOTE | 2018-01-03 10:51 | RAD ---
CHEST TWO VIEWS: History: Dyspena. Comparison: 10-23-17 FINDINGS: There is a new linear opacity within the left upper lobe. There is also a linear opacity in the left lower lobe. Right lung is relatively clear. No acute osseous abnormality. Cardiac silhouette and medi astinal contour is similar. IMPRESSION: Linear opacity in the left upper lobe and left lower lobe. This may be sequellae of atelectasis altho ugh follow up is definitely recommended. POS: [facility]
== END 2018-01-03 09:43 | disposition home or self-care (01) ==
LOC: RAD 09:42
PROVIDERS: ATTEND Internal Medicine Pulmonary Disease
DX: R06.00 Dyspnea, unspecified (principal); R91.8 Other nonspecific abnormal finding of lung field
CPT/HCPCS: 71046

== ENCOUNTER 2018-03-02 11:25 | Outpatient (CLI) | payer MEDICARE, OTHER | END 2018-03-02 11:26 | disposition home or self-care (01) | LOC: BICMAMMO 11:25 | PROVIDERS: ATTEND Family Medicine | DX: Z12.31 Encounter for screening mammogram for malignant neoplasm of breast (principal); Z90.710 Acquired absence of both cervix and uterus | CPT/HCPCS: 77063; 77067 ==

== ENCOUNTER 2018-09-27 13:41 | Emergency (ER) | payer MEDICARE, OTHER ==
[2018-09-27 14:43] LABS: #Eosinphils 0.1 thou/uL (0.0-0.7); #Lymphocytes 2.7 thou/uL (1.20-3.40); #Monocytes 0.5 thou/uL (0.11-0.59); #Neutrophils 5.9 thou/uL (1.40-6.50); %Basophils 0.4 % (0.0-1.0); %Eosinophils 1.4 % (0.0-10.0); %Lymphocytes 29.3 % (21.0-51.0); %Monocytes 5.4 % (0.0-10.0); %Neutrophils 63.4 % (42.0-75.0); Hemoglobin 15.8 g/dL (12.0-16.0); Mean Corpuscular HGB CONC 33.1 g/dL (32.0-36.0); Mean Corpuscular Hemoglobin 33.1 pg (27.0-31.0); Mean Corpuscular Volume 99.9 fL (78.0-98.0); Mean Platelet Volume 6.7 fL (7.4-10.4); Platelet Count 327 thou/uL (130-400); RBC Distribution Width 12.6 % (11.5-14.5); Red Blood Cell (RBC) Count 4.77 mill/uL (4.20-5.40); White Blood Cell (WBC) Count 9.4 thou/uL (4.8-10.8)
[2018-09-27 15:14] LABS: ALT (SGPT) 14 U/L (8-55); AST (SGOT) 11 U/L (5-34); Alkaline Phosphatase 70 U/L (40-150); Anion Gap 13 mmol/L (10-20); BUN (Urea Nitrogen) 18 mg/dL (9.8-20.1); Bilirubin, Total 0.3 mg/dL (0.2-1.2); CK (CPK) 71 U/L (29-168); Calc. Creatinine Clearance 0 mL/min (70-130); Calcium 9.8 mg/dL (7.8-10.44); Carbon Dioxide 27 mmol/L (23-31); Chloride 107 mmol/L (98-107); Estimated GFR-MDRD 79; Globulin 2.5 g/dL (2.4-3.5); Glucose 94 mg/dL (80-115); Lipase 12 U/L (8-78); Potassium 4.1 mmol/L (3.5-5.1); Protein, Total 6.5 g/dL (6.0-8.3); Sodium 143 mmol/L (136-145)
--- NOTE | 2018-09-27 15:17 | RAD ---
PORTABLE CHEST: DATE: 09/27/2018. PROVIDED CLINICAL HISTORY: Chest pain. FINDINGS: Comparison 01/03/2018. Cardiac and mediastinal silhouette is within normal limits. Lungs appear any r. No pleural effusion or pneumothorax apparent. Cervical rib left of midline redemonstrated. IMPRESSION: No evidence for an acute cardiopulmonary process. POS: [facility]
== END 2018-09-27 16:10 | disposition home or self-care (01) ==
LOC: ERS 13:41
DX: R07.9 Chest pain, unspecified (principal); E03.9 Hypothyroidism, unspecified; E78.00 Pure hypercholesterolemia, unspecified; J44.9 Chronic obstructive pulmonary disease, unspecified; F32.9 Major depressive disorder, single episode, unspecified; F17.210 Nicotine dependence, cigarettes, uncomplicated; Z79.899 Other long term (current) drug therapy; Z79.51 Long term (current) use of inhaled steroids
CPT/HCPCS: 36415; 71045; 80053; 82550; 83690; 84484; 85025; 85379; 93005

== ENCOUNTER 2018-10-16 14:36 | Outpatient (CLI) | payer MEDICARE, MEDICAID ==
--- NOTE | 2018-10-16 16:08 | MRI ---
Brain MRI with and without contrast: 10/16/2018 COMPARISON: None HISTORY: Dizziness, unsteady gait TECHNIQUE: Multiplanar, multisequence MR imaging of the brain obtained with and without contrast. The diffusion weighted imaging demonstrates no evidence for acute infarction. The axial gradient echo imaging demonstrates no evidence for intracranial hemorrhage. There is a subcentimeter focus of T2 hyperintensity measuring 6 mm posterior to the C2 vertebral body on the left, partially effacing the ventral thecal sac, leading to a mild degree of central canal stenosis. This is incompletely imaged on this examination and is likely associated with degenerative change. This could be better assessed with dedicated cervical spine MRI as clinically warranted. There is mild mucosal thickening of the anterior ethmoid air cells and the frontal sinuses bilaterall y. There is mild polypoid mucosal thickening involving the alveolar recess of the maxillary sinuses, right greater than left. Arterial flow voids at the axial level of the skull base appear unremarkable on the T2-weighted imagi ng. No midline shift or mass effect. No ventricular enlargement. There are a few subcentimeter foci of in creased FLAIR signal within the deep and subcortical white matter suggesting minimal small vessel disease. The postcontrast imaging demonstrates no abnormal enhancement. Detailed assessment of the coronal and sagittal postcontrast imaging is limited on the basis of motion artifact. IMPRESSION: Incidental findings as detailed above. No acute findings are seen. Transcribed Date/Time: 10/16/2018 4:18 PM
== END 2018-10-16 14:37 | disposition home or self-care (01) ==
LOC: BICMRI 14:36
PROVIDERS: ATTEND Family Medicine
DX: R42 Dizziness and giddiness (principal); R26.81 Unsteadiness on feet
CPT/HCPCS: 70553

== ENCOUNTER 2018-11-12 10:49 | Outpatient (CLI) | payer MEDICARE, MEDICAID ==
--- NOTE | 2018-11-12 11:41 | ULT ---
ULTRASOUND RETROPERITONEUM COMPLETE: (RENAL) DATE: 11/12/2018 HISTORY: 63-year-old female with "complex renal cyst" FINDINGS: The right kidney measures 11 x 4.5 x 4.5 cm. The left kidney measures 10.5 x 6 x 5.5 cm. Both kidneys have normal parenchymal echogenicity. There is no hydronephrosis. No moderate sized or large renal cystic or solid renal lesion is identified. Cursory images of the urinary bladder demonstrate no gross abnormality. The previous CT of 11/24/2017 showed a 3 x 2 mm left renal upper pole calculus (visible only on the co tramaine reconstructions, not on the axial images). It is probably too small to be identified on ultrasound. The previous CT also showed a 1 cm low-density lesion in the lateral aspect of the left renal midpole parenchyma, which is not identified on this ultrasound. It is too small to definitively characterize, but statistically most likely represent a cyst. A few tiny cortical hypodense lesions a few millimeters in size in both kidneys on the previous CT, a re much too small to be visible on ultrasound. There are 2 hypoechoic echogenic foci in the renal parenchyma, one in the right mid pole, and one in the left mid-lower pole. They are on the order of approximately 3 to 8 mm in size. They are nonspecific. They could represent portions of tiny blood vessels. IMPRESSION: 1) the small and tiny parenchymal hypodensities in the bilateral kidneys demonstrated on the CT of , are too small to be visible on ultrasound. 2) minimal nephrolithiasis (calculus of left kidney): incidentally, there is a 3 mm calculus in a lef t renal upper pole calyx on the prior CT, which is also too small to be visible on ultrasound. 3) no hydronephrosis.
== END 2018-11-12 10:50 | disposition home or self-care (01) ==
LOC: BICULT 10:49
PROVIDERS: ATTEND Urology
DX: Q61.9 Cystic kidney disease, unspecified (principal); N20.0 Calculus of kidney; R93.421 Abnormal radiologic findings on diagnostic imaging of right kidney; R93.422 Abnormal radiologic findings on diagnostic imaging of left kidney
CPT/HCPCS: 36415; 76770; 80048; 81001; 87077; 87086; 87186

== ENCOUNTER 2019-03-04 14:28 | Outpatient (CLI) | payer MEDICARE, MEDICAID ==
--- NOTE | 2019-03-04 16:44 | MMO ---
Bilateral MAMMO Bilat Screen [facility]. CLINICAL HISTORY: Patient is 63 years old and is seen for screening. The patient has no family history of breast cancer. VIEWS: The views performed were: bilateral craniocaudal with tomosynthesis and bilateral mediolateral oblique with tomosynthesis. FILMS COMPARED: The present examination has been compared to prior imaging studies performed at [facility] on 02/25/2015, 02/26/2016, 02/28/2017 and 03/02/2018. This study has been interpreted with the assistance of computer-aided detection. MAMMOGRAM FINDINGS: There are scattered fibroglandular densities. There are no suspicious masses, suspicious calcifications, or new areas of architectural distortion. IMPRESSION: THERE IS NO MAMMOGRAPHIC EVIDENCE OF MALIGNANCY. A ROUTINE FOLLOW-UP MAMMOGRAM IN 1 YEAR IS RECOMMENDED. THE RESULTS OF THIS EXAM WERE SENT TO THE PATIENT. ACR BI-RADS Category 1 - Negative MAMMOGRAPHY NOTE: 1. A negative mammogram report should not delay a biopsy if a dominant of clinically suspicious mass is present. 2. Approximately 10% to 15% of breast cancers are not detected by mammography. 3. Adenosis and dense breasts may obscure an underlying neoplasm. Reported by: MAYCO MCKEON MD Electonically Signed: [id number]
== END 2019-03-04 14:29 | disposition home or self-care (01) ==
LOC: BICMAMMO 14:28
PROVIDERS: ATTEND Family Medicine
DX: Z12.31 Encounter for screening mammogram for malignant neoplasm of breast (principal)
CPT/HCPCS: 77063; 77067

== ENCOUNTER 2019-03-07 06:39 | Outpatient (CLI) | payer MEDICARE, MEDICAID ==
--- NOTE | 2019-03-07 16:54 | EKG ---
Test Reason : Blood Pressure : / mmHG Vent. Rate : 068 BPM Atrial Rate : 068 BPM P-R Int : 174 ms QRS Dur : 084 ms QT Int : 388 ms P-R-T Axes : 059 063 058 degrees QTc Int : 412 ms Normal sinus rhythm Cannot rule out Anterior infarct , age undetermined Abnormal ECG Confirmed by EVELYN GILLIAM ([id number]) on 03/07/2019 4:54:33 PM Referred By: INDY Confirmed By:EVELYN GILLIAM
== END 2019-03-07 06:40 | disposition home or self-care (01) ==
LOC: LABBT 06:39
PROVIDERS: ATTEND Obstetrics & Gynecology
DX: Z01.818 Encounter for other preprocedural examination (principal); R87.623 High grade squamous intraepithelial lesion on cytologic smear of vagina (HGSIL)
CPT/HCPCS: 93005; 93010

== ENCOUNTER 2019-03-11 05:42 | Day surgery (SDC) | payer MEDICARE, MEDICAID ==
[2019-03-07 12:22] VITALS: BMI 38.1
[2019-03-07 13:39] LABS: Hemoglobin 16.2 g/dL (12.0-16.0); Mean Corpuscular HGB CONC 33.7 g/dL (32.0-36.0); Mean Corpuscular Hemoglobin 33.2 pg (27.0-31.0); Mean Corpuscular Volume 98.3 fL (78.0-98.0); Mean Platelet Volume 6.6 fL (7.4-10.4); Platelet Count 263 thou/uL (130-400); RBC Distribution Width 12.8 % (11.5-14.5); Red Blood Cell (RBC) Count 4.89 mill/uL (4.20-5.40); White Blood Cell (WBC) Count 8.5 thou/uL (4.8-10.8)
[2019-03-07 13:59] LABS: Anion Gap 13 mmol/L (10-20); BUN (Urea Nitrogen) 13 mg/dL (9.8-20.1); Calc. Creatinine Clearance 0 mL/min (70-130); Carbon Dioxide 23 mmol/L (23-31); Chloride 106 mmol/L (98-107); Estimated GFR-MDRD 79; Glucose 89 mg/dL (80-115); Potassium 3.9 mmol/L (3.5-5.1); Sodium 138 mmol/L (136-145)
--- NOTE | 2019-03-08 07:31 | HP ---
ANTICIPATED DATE OF SURGERY: 03/11/2019. HISTORY OF PRESENT ILLNESS: Ms. Aponte is a 63-year-old white female, history of hysterectomy, long-time tobacco smoker with chronic asthmatic bronchitis, who was referred by Dr. Tania Swanson for a vulvar lesion noted during her urologic examination and evaluation. The patient reports a lesion being present there for a good while, but denied any vaginal bleeding or chronic pruritus in the area. No pain. She was assessed in my office on January 29 for the lesion. A punch biopsy was obtained of it, which showed moderate vulvar dysplasia. She is set for wide local excision of the lesion. PAST MEDICAL HISTORY: As noted, hyperlipidemia, depression, restless legs, chronic asthmatic bronchitis, and chronic obstructive lung disease. PAST SURGICAL HISTORY: Noted previous hysterectomy, total shoulder joint surgery, and tubal ligation. CURRENT MEDICATIONS: 1. Albuterol inhaler two puffs q.4 hours as needed. 2. Atorvastatin 10 mg daily. 3. Budesonide nebulizer 0.5 mg per 2 mL one vial per nebulizer b.i.d. 4. Flovent 110 mcg actuation aerosol inhaler one puff b.i.d. 5. Furosemide 20 mg tablet b.i.d. 6. Gabapentin tablet t.i.d. 7. Levothyroxine 75 mcg tablet daily. 8. Montelukast 10 mg tablet daily. 9. Pramipexole 0.25 mg tablet one p.o. a.m. and two p.o. in the evening for restless legs. 10. Sertraline 50 mg tablet daily. 11. Solifenacin 5 mg tablet daily for overactive bladder. 12. Tramadol 50 mg b.i.d. as needed for chronic pain. ALLERGIES: SHE HAS NO KNOWN DRUG ALLERGIES. SOCIAL HISTORY: Long-term smoker, one pack per day. PHYSICAL EXAMINATION: VITAL SIGNS: Height 5 feet 1 inch, weight 198, BMI 37.4. Blood pressure 124/76, pulse 71, respiratory rate 18, and O2 saturation on room air was 97%. HEENT: Within normal limits. The patient does have a small leukoplakia in the right side of her oral mucosa and has been now referred for ENT for evaluation of this. CHEST: She has some scattered wheezes, otherwise air movement adequate. HEART: Regular rate and rhythm. S1 and S2 heart sounds. ABDOMEN: Soft, nontender, and nondistended with no palpable masses. PELVIC: External genitalia was evaluated near the vaginal vulvar introitus. There was a 2.5 x 1.5 cm raised whitish lesion, nonfriable. 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 The location of this is at 7 to 7:30 o'clock the vaginal introitus. Otherwise, upper vagina wall had no lesions. Cuff intact. Cervix surgically absent. Uterus surgically absent. Adnexa nontender with no masses. ASSESSMENT: This is a 63-year-old white female, prior hysterectomy, long-term smoker with vulvar dysplasia MARCOS II. PLAN: Plan is for wide local excision of the lesion. The risks and benefits of procedure and set for surgery on 03/11/2019. Job ID: [id number]
[2019-03-11] MEDS ORDERED: Lidocaine 0.5%/Epinephrine 1:200,000 50 ml Vial ONE (06:37)
[2019-03-11] MEDS ORDERED: Lidocaine 2% w/Epinephrine 1:200K 20 ML VIAL ONE (06:37)
[2019-03-11] MEDS ORDERED: Lidocaine 1% w/Epinephrine 1:100K 20 ML VIAL ONE (07:01)
[2019-03-11] MEDS ORDERED: Famotidine/PF 20 mg/2ml Vial ONE (07:03)
[2019-03-11] MEDS ORDERED: Albuterol Sulfate HFA (OR ONLY) ONE (07:03)
[2019-03-11] MEDS ORDERED: Fentanyl 100 MCG/2 ML VIAL ONE (07:03)
[2019-03-11] MEDS ORDERED: Ketamine 50 MG/ML (10ML VIAL) ONE (07:26)
[2019-03-11] MEDS ORDERED: Midazolam HCl 2 mg/2 ml Vial ONE (07:26)
--- NOTE | 2019-03-11 11:26 | OP ---
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 PROCEDURE PERFORMED: Wide local excision of the vulvar vaginal introital lesion with perineoplasty technique. ANESTHESIA: General endotracheal. ESTIMATED BLOOD LOSS: Less than 10 mL. COMPLICATIONS: None. COUNTS: Correct times. ANTIBIOTICS: 2 g Ancef, on-call to OR. FINDING: Leukoplakia with some condylomatous change in the posterior perineum near the introitus ranging from the 5 to the 8 region. Wide local excision removal with half a centimeter margin involving the 0.5 cm margins of the dysplastic changes. PATHOLOGY: The specimen was tagged with a short tag at 9 o'clock and 12 o'clock along the suture thread. DISPOSITION: Recovery room, stable. DESCRIPTION OF PROCEDURE: The patient previously received informed consent in regard to surgery. She was taken back to the operating room after general endotracheal anesthetic agent was accomplished. She was placed in dorsal lithotomy position with Dante stirrups. Prepped and draped in usual sterile fashion. In-and out catheterization of bladder was performed at this time. The upper vagina, vaginal cuff were inspected with no lesions noted. The vulva was also reinspected with the previously noted lesion seen. Areas of the posterior vaginal introitus were grasped with 2 Allis clamps and this was injected over the lesion with 1% lidocaine with epinephrine. Margin of half a centimeter around the lesion was marked with a marking pen. A #11 blade was then utilized to excise the lesion starting from the 9 o'clock and then also 3 o'clock wedging with resection around this essentially forming a perineoplasty. The deep tissue was also obtained. The lesion was removed in its entirety. It was tagged at the 12 o'clock with a long suture and 9 o'clock with a short suture. Bovie cautery under the base was utilized for hemostasis. Then, deep stitches of the muscle and pelvic fascia were then closed with interrupted 2-0 Vicryl sutures and then superficial closure of the mucosa starting cephalad to working caudally was carried out with interrupted [id number] 2-0 Vicryl sutures. Good approximation. Hemostasis was confirmed. The surgery was then terminated. All counts were correct and there was no anesthetic or surgical complications. Job ID: [id number]
[2019-03-11] MEDS ORDERED: PHENYLEPHRINE-NS 100 MCG/ML 10 ML SYRINGE ONE (15:31)
[2019-03-11] MEDS ORDERED: Esmolol 100 MG/10 ML VIAL ONE (15:31)
[2019-03-11] MEDS ORDERED: Succinylcholine Chloride 20 MG/ML 10 ml SYRINGE FS ONE (15:31)
[2019-03-11] MEDS ORDERED: Ondansetron PF 4 MG/2 ML Vial ONE (15:31)
[2019-03-11] MEDS ORDERED: Dexamethasone 20 MG/5 ML VIAL ONE (15:31)
[2019-03-11] MEDS ORDERED: Glycopyrrolate 0.2 MG/ML 5 ML SYRINGE ONE (15:31)
[2019-03-11] MEDS ORDERED: Metoclopramide HCl 10 MG/2 ML VIAL ONE (15:31)
== END 2019-03-11 10:02 | disposition home or self-care (01) ==
LOC: SDC 05:42
PROVIDERS: ATTEND Obstetrics & Gynecology
PROC: 0UBMXZZ Excision of Vulva, External Approach (ICD-10-PCS; principal; 2019-03-11)
PROC: 0HB9XZZ Excision of Perineum Skin, External Approach (ICD-10-PCS; 2019-03-11)
DX: N90.1 Moderate vulvar dysplasia (principal); J44.9 Chronic obstructive pulmonary disease, unspecified; E78.5 Hyperlipidemia, unspecified; F32.9 Major depressive disorder, single episode, unspecified; G25.81 Restless legs syndrome; F17.210 Nicotine dependence, cigarettes, uncomplicated; G47.30 Sleep apnea, unspecified; M19.90 Unspecified osteoarthritis, unspecified site; Z79.899 Other long term (current) drug therapy; Z99.89 Dependence on other enabling machines and devices
CPT/HCPCS: 36415; 80048; 85027; 86850; 86900; 86901; 88309; J0131; J0690; J1100; J2001; J2250; J2405; J2765; J3010; S0028

== ENCOUNTER 2019-11-19 15:04 | Outpatient (CLI) | payer MEDICARE, MEDICAID ==
--- NOTE | 2019-11-19 15:38 | RAD ---
Exam: 1 view abdomen HISTORY: Hyperdense renal cysts. Renal calculi. COMPARISON: none FINDINGS: Nonspecific bowel gas pattern. No acute osseous abnormalities. Densities in the left and ri ght renal pelvis compatible with phleboliths No radiographic evidence of nephrolithiasis. IMPRESSION: No radiographic evidence of nephrolithiasis. Calcification of the left right hemipelvis a re presumed to be phleboliths.
--- NOTE | 2019-11-19 16:20 | ULT ---
EXAM: BILATERAL RENAL ULTRASOUND COMPLETE: 11/19/19 COMPARISON: 11/12/18 FINDINGS: Right kidney measures 12.5 x 4.9 x 4.8 cm. Left kidney measures 12.5 x 4.7 x 6.1 cm. No renal hydronephrosis. Small hyperdensity in the region of the left kidney potentially a small nono bstructing calculus. Urinary bladder is unremarkable. IMPRESSION: No renal hydronephrosis. Possible small left renal calculus. POS: [facility]
== END 2019-11-19 15:05 | disposition home or self-care (01) ==
LOC: BICULT 15:04
PROVIDERS: ATTEND Urology
DX: N20.0 Calculus of kidney (principal); N39.41 Urge incontinence; R31.29 Other microscopic hematuria; R35.0 Frequency of micturition; N28.1 Cyst of kidney, acquired; N89.8 Other specified noninflammatory disorders of vagina; M61.9 Calcification and ossification of muscle, unspecified; Z87.891 Personal history of nicotine dependence
CPT/HCPCS: 36415; 74018; 76770; 80048; 81001

== ENCOUNTER 2020-02-10 07:58 | Outpatient (CLI) | payer MEDICARE, MEDICAID, OTHER ==
--- NOTE | 2020-02-10 18:13 | EKG ---
Test Reason : Blood Pressure : / mmHG Vent. Rate : 080 BPM Atrial Rate : 080 BPM P-R Int : 176 ms QRS Dur : 086 ms QT Int : 384 ms P-R-T Axes : 064 057 062 degrees QTc Int : 442 ms Sinus rhythm with occasional Premature ventricular complexes Otherwise normal ECG Confirmed by DR. Mohinder BURR ([id number]) on 02/10/2020 6:12:31 PM Referred By: CAMILO Confirmed By:DR. Mohinder BURR
[2020-02-11 16:20] LABS: SARS-CoV-2 MS2 Positive; SARS-CoV-2 N Gene Negative; SARS-CoV-2 S Gene Negative; SARS-CoV-2 by NAA Not Detected (NotDetected); SARS-CoV-2 orf1ab Negative
== END 2020-02-10 07:59 | disposition home or self-care (01) ==
LOC: LABBT 07:58
PROVIDERS: ATTEND Specialist
DX: Z01.818 Encounter for other preprocedural examination (principal); Z20.828 Contact with and (suspected) exposure to other viral communicable diseases; K13.21 Leukoplakia of oral mucosa, including tongue
CPT/HCPCS: 85014; 93005; U0003; 87635; 93010

== ENCOUNTER 2020-02-13 08:20 | Day surgery (SDC) | payer MEDICARE, MEDICAID ==
[2020-02-11 11:32] VITALS: BMI 39.6
[2020-02-13] MEDS ORDERED: EPINEPHrine 1 MG/ML AMP ONE (09:44)
[2020-02-13] MEDS ORDERED: Ondansetron PF 4 MG/2 ML Vial ONE (10:05)
[2020-02-13] MEDS ORDERED: PROPOFOL 200 MG/20 ML VIAL ONE (10:05)
[2020-02-13] MEDS ORDERED: Glycopyrrolate 0.2 MG/ML 5 ML SYRINGE ONE ×2 (10:05)
[2020-02-13] MEDS ORDERED: Rocuronium Bromide 10 MG/ML (10ML VIAL) ONE (10:05)
[2020-02-13] MEDS ORDERED: Dexamethasone 20 MG/5 ML VIAL ONE (10:05)
[2020-02-13] MEDS ORDERED: Lidocaine 1% PF 5 ML VIAL ONE (10:05)
[2020-02-13] MEDS ORDERED: Methylene Blue 50 MG/10 ML AMPUL ONE (10:56)
[2020-02-13] MEDS ORDERED: Fentanyl 100 MCG/2 ML VIAL ONE (10:56)
[2020-02-13] MEDS ORDERED: Bupivacaine 0.25% HCL 30 ML VIAL ONE (11:09)
[2020-02-13] MEDS ORDERED: Bupivacaine/Epinephrine 0.25% 30 ML VIAL ONE (11:09)
--- NOTE | 2020-02-14 13:22 | OP ---
DATE OF PROCEDURE: 02/13/2020 PREOPERATIVE DIAGNOSES: 1. Leukoplakia. 2. Left oral lesion. POSTOPERATIVE DIAGNOSES: 1. Leukoplakia. 2. Left oral lesion. PROCEDURE PERFORMED: 1. Direct laryngoscopy. 2. Laser destruction of extensive left lingual and buccal mucosal lesion. PROCEDURE IN DETAIL: After the consent was obtained, the patient was identified, brought to the operating room, and placed on the operating room table in supine position. General endotracheal anesthesia was obtained. The patient was positioned for surgery. The patient underwent systematic oropharyngeal, hypopharyngeal, laryngeal, and nasopharyngeal examination, and the only abnormalities were found limited to the left oropharynx. Within the oropharynx were found to have extensive left lateral tongue leukoplakia as well as left gingival and buccal leukoplakia. Biopsies were obtained, and the dysplastic tissues were laser ablated with the CO2 laser set at 7 on a continuous stream with energy. The area of post laser ablation was then infiltrated with 0.25% Marcaine, and the patient was awakened, taken to the recovery room in stable condition prior to discharge home. Job ID: [id number]
== END 2020-02-13 13:09 | disposition home or self-care (01) ==
LOC: SDC 08:20
PROVIDERS: ATTEND Specialist
PROC: 0C57XZZ Destruction of Tongue, External Approach (ICD-10-PCS; principal; 2020-02-13)
DX: K13.21 Leukoplakia of oral mucosa, including tongue (principal); D10.1 Benign neoplasm of tongue; I25.10 Atherosclerotic heart disease of native coronary artery without angina pectoris; E03.9 Hypothyroidism, unspecified; E78.00 Pure hypercholesterolemia, unspecified; J44.9 Chronic obstructive pulmonary disease, unspecified; F17.210 Nicotine dependence, cigarettes, uncomplicated; G47.30 Sleep apnea, unspecified; E78.5 Hyperlipidemia, unspecified; Z79.899 Other long term (current) drug therapy
CPT/HCPCS: 42160; 88305; Q9968; J0171; J1100; J2405; J2704; J3010; S0020

== ENCOUNTER 2020-03-04 10:20 | Outpatient (CLI) | payer MEDICARE, MEDICAID ==
--- NOTE | 2020-03-04 11:07 | RAD ---
EXAM: Chest PA and lateral: HISTORY: Dyspnea. Chest pain. COMPARISON: 11/21/2017, 09/27/2018 FINDINGS: Heart: Normal cardiac silhouette Aorta: Atherosclerosis Pulmonary vessels: Normal Costophrenic angles: Costophrenic angles are clear. Lungs: No consolidation or masses. Hyperinflation. Chronic lung parenchymal changes. Pneumothorax: No pneumothorax Osseous structures: No osseous abnormalities IMPRESSION: 1. Atherosclerosis 2. Hyperinflation. Chronic changes.
== END 2020-03-04 10:21 | disposition home or self-care (01) ==
LOC: BICRAD 10:20
PROVIDERS: ATTEND Internal Medicine Critical Care Medicine
DX: R06.00 Dyspnea, unspecified (principal); I70.0 Atherosclerosis of aorta
CPT/HCPCS: 71046

== ENCOUNTER 2020-04-20 06:37 | Outpatient (CLI) | payer MEDICARE, MEDICAID ==
[2020-04-21 09:42] LABS: SARS-CoV-2 MS2 Positive; SARS-CoV-2 N Gene Negative; SARS-CoV-2 S Gene Negative; SARS-CoV-2 by NAA Not Detected (NotDetected); SARS-CoV-2 orf1ab Negative
== END 2020-04-20 06:38 | disposition home or self-care (01) ==
LOC: LABBT 06:37
PROVIDERS: ATTEND Internal Medicine
DX: Z01.812 Encounter for preprocedural laboratory examination (principal); R11.10 Vomiting, unspecified; R13.10 Dysphagia, unspecified; Z86.010 Personal history of colon polyps; Z80.0 Family history of malignant neoplasm of digestive organs; Z20.828 Contact with and (suspected) exposure to other viral communicable diseases
CPT/HCPCS: 87635; U0003

== ENCOUNTER 2020-04-24 06:57 | Day surgery (SDC) | payer MEDICARE, MEDICAID ==
[2020-04-23 10:09] VITALS: BMI 38.0
[2020-04-24] MEDS ORDERED: PROPOFOL 200 MG/20 ML VIAL ONE (09:54)
--- NOTE | 2020-04-24 10:33 | OP ---
DATE OF PROCEDURE: 04/24/2020 PRIMARY PHYSICIAN: Naina Villalobos MD SUBSTATION DESIGNER SURGEON: None. PROCEDURES PERFORMED: 1. Esophagogastroduodenoscopy with biopsies and esophageal dilation over guidewire. 2. Colonoscopy with snare polypectomy. INDICATIONS: 1. Vomiting, episodic. 2. Dysphagia, with history of esophageal stricture. 3. History of colon polyps. 4. Family history of GI malignancy (sister in her 40s). MEDICATIONS: See Anesthesia record. FINDINGS: After discussion of the risks, benefits, and alternatives of the procedure, informed consent was obtained and witnessed. Pre-endoscopic cardiopulmonary examination was satisfactory. Time-out was performed before sedation was achieved. Sedation was achieved with Anesthesia assistance in the endoscopy unit. A Pentax adult upper endoscope was placed into the oropharynx and passed through the cricopharyngeus under direct visualization. The esophageal mucosa appeared normal. At the GE junction, there is a mild shallow fibrotic stricture. The endoscope was easily passed into the stomach. Forward and retroflexed views of the entire gastric mucosa were obtained. There is some patchy moderate to severe erosive gastritis within the gastric body, with some heme-staining and multiple linear erosions. Biopsies were obtained from the gastric antrum and body to rule out Helicobacter pylori infection. The endoscope was passed through the pylorus and into the first and second portions of the duodenum, which appeared normal. At this point, a spring-tipped Savary guidewire was passed into the stomach. The endoscope was removed leaving the guidewire in place. A single pass was made with an 18-mm Savary dilator over the guidewire without significant resistance. The dilator and guidewire were then removed, and the endoscope was passed back down into the esophagus for re-examination. There was some mild mucosal disruption at the level of the stricture at the GE junction as well as at the level of the upper esophageal sphincter. The patient was then repositioned. Digital rectal exam was performed, which was unremarkable. A Pentax adult colonoscope was inserted into the anus and passed forward to the cecum in the usual fashion. The cecal base was identified by the appendiceal orifice as well as the ileocecal valve. The terminal ileum was not intubated. The colonoscope was slowly withdrawn in a gradual and circumferential manner with careful examination of the entire colonic mucosa. The quality of the prep was good. In the descending colon, there were 2 sessile polyps, measuring 1 to 2 mm in diameter. These were both completely removed with cold snare and retrieved for pathology. The remainder of the colonic mucosa appeared normal on forward and retroflexed views. The colonoscope was completely withdrawn, and the patient allowed to recover. The patient tolerated the procedure well. There were no immediate postprocedure complications. IMPRESSION: 1. Erosive gastritis in the gastric body, biopsied to rule out Helicobacter pylori. 2. Mild stricture at the GE junction, esophagus dilated over guidewire to 18 mm, with mild mucosal disruption. 3. Two descending colon polyps, measuring 1 to 2 mm, both completely removed with cold snare and retrieved for pathology. 4. Otherwise normal colonoscopy. RECOMMENDATIONS: 1. Follow up pathology on the gastric biopsies and colon polyps. 2. Increase Nexium to 40 mg twice daily dosing. 3. Avoid any nonsteroidal anti-inflammatory drugs. 4. Repeat colonoscopy for surveillance at a 5-year interval. 5. Follow up in GI Clinic with MD or PA in about 1 month. Job ID: [id number]
== END 2020-04-24 10:45 | disposition home or self-care (01) ==
LOC: SDC 06:57
PROVIDERS: ATTEND Internal Medicine
PROC: 0D757ZZ Dilation of Esophagus, Via Natural or Artificial Opening (ICD-10-PCS; principal; 2020-04-24)
PROC: 0DB68ZX Excision of Stomach, Via Natural or Artificial Opening Endoscopic, Diagnostic (ICD-10-PCS; 2020-04-24)
PROC: 0DBM8ZX Excision of Descending Colon, Via Natural or Artificial Opening Endoscopic, Diagnostic (ICD-10-PCS; 2020-04-24)
DX: K22.2 Esophageal obstruction (principal); K31.89 Other diseases of stomach and duodenum; D12.4 Benign neoplasm of descending colon; K25.9 Gastric ulcer, unspecified as acute or chronic, without hemorrhage or perforation; E78.5 Hyperlipidemia, unspecified; E03.9 Hypothyroidism, unspecified; G47.33 Obstructive sleep apnea (adult) (pediatric); G43.909 Migraine, unspecified, not intractable, without status migrainosus; M19.90 Unspecified osteoarthritis, unspecified site; F17.210 Nicotine dependence, cigarettes, uncomplicated; J44.9 Chronic obstructive pulmonary disease, unspecified; F32.9 Major depressive disorder, single episode, unspecified; K21.9 Gastro-esophageal reflux disease without esophagitis; E78.00 Pure hypercholesterolemia, unspecified; E66.9 Obesity, unspecified; Z68.38 Body mass index [BMI] 38.0-38.9, adult; Z86.010 Personal history of colon polyps; Z80.0 Family history of malignant neoplasm of digestive organs; Z79.899 Other long term (current) drug therapy
CPT/HCPCS: 88305; 88312; J2704; J7620

== ENCOUNTER 2020-05-11 14:17 | Outpatient (CLI) | payer MEDICARE, MEDICAID ==
--- NOTE | 2020-05-11 15:32 | BD ---
BONE DENSITOMETRY: Date: 05/11/2019 HISTORY: Postmenopausal screening. FINDINGS: Lumbar Spine: BMD (g/cm2) L1 0.889 T-Score: -0.9 L2 0.751 T-Score: -2.5 L3 0.802 T-Score: -2.6 L4 0.633 T-Score: -3.9 Total 0.762 T-Score: -2.6 Left Femoral Neck: 0.635 T-Score: -1.9 Total Femur: 0.856 T-Score: -0.7 IMPRESSION: 1. Bone mineral density of the lumbar spine indicates osteoporosis. 2. Bone mineral density of the femoral neck indicate osteopenia. POS: AGW
--- NOTE | 2020-05-11 15:40 | MMO ---
Bilateral MAMMO Bilat Screen [facility]. CLINICAL HISTORY: Patient is 64 years old and is seen for screening. The patient has no family history of breast cancer. The patient has a history of other cancer. VIEWS: The views performed were: bilateral craniocaudal with tomosynthesis; bilateral mediolateral oblique with tomosynthesis; and right craniocaudal. FILMS COMPARED: The present examination has been compared to prior imaging studies performed at [facility] on 02/26/2016, 02/28/2017, 03/02/2018 and 03/04/2019. This study has been interpreted with the assistance of computer-aided detection. MAMMOGRAM FINDINGS: There are scattered fibroglandular densities. There are no suspicious masses, suspicious calcifications, or new areas of architectural distortion. IMPRESSION: THERE IS NO MAMMOGRAPHIC EVIDENCE OF MALIGNANCY. A ROUTINE FOLLOW-UP MAMMOGRAM IN 1 YEAR IS RECOMMENDED. THE RESULTS OF THIS EXAM WERE SENT TO THE PATIENT. ACR BI-RADS Category 1 - Negative MAMMOGRAPHY NOTE: 1. A negative mammogram report should not delay a biopsy if a dominant of clinically suspicious mass is present. 2. Approximately 10% to 15% of breast cancers are not detected by mammography. 3. Adenosis and dense breasts may obscure an underlying neoplasm. Reported by: MAYCO MCKEON MD Electonically Signed: [id number]
== END 2020-05-11 14:18 | disposition home or self-care (01) ==
LOC: BICMAMMO 14:17
PROVIDERS: ATTEND Family Medicine
DX: Z12.31 Encounter for screening mammogram for malignant neoplasm of breast (principal); Z13.820 Encounter for screening for osteoporosis; M81.0 Age-related osteoporosis without current pathological fracture; M85.89 Other specified disorders of bone density and structure, multiple sites; Z85.89 Personal history of malignant neoplasm of other organs and systems
CPT/HCPCS: 77063; 77067; 77080

== ENCOUNTER 2020-05-14 10:37 | Outpatient (CLI) | payer MEDICARE, MEDICAID ==
--- NOTE | 2020-05-14 11:07 | ULT ---
EXAM: Right upper quadrant ultrasound PROVIDED CLINICAL HISTORY: Vomiting COMPARISON: None FINDINGS: Visualized portions of the pancreas appear normal. Liver demonstrates no mass or intrahepatic biliary ductal dilatation. The liver appears enlarged, norah suring about 20.7 cm in craniocaudal dimension at the right hepatic lobe. Common duct is nondilated. Gallbladder demonstrates no stones, wall thickening or pericholecystic flu id. Right kidney demonstrates no hydronephrosis or mass. IMPRESSION: Hepatomegaly.
== END 2020-05-14 10:38 | disposition home or self-care (01) ==
LOC: BICULT 10:37
PROVIDERS: ATTEND Student in an Organized Health Care Education/Training Program
DX: R11.10 Vomiting, unspecified (principal); R16.0 Hepatomegaly, not elsewhere classified
CPT/HCPCS: 76705

== ENCOUNTER 2020-12-30 12:40 | Outpatient (CLI) | payer MEDICARE, MEDICAID, OTHER | END 2020-12-30 12:41 | disposition home or self-care (01) | LOC: NM 12:40 | PROVIDERS: ATTEND Internal Medicine Gastroenterology | DX: R10.9 Unspecified abdominal pain (principal); R11.0 Nausea | CPT/HCPCS: 78227; A9537 ==

== ENCOUNTER 2022-09-19 06:00 | Emergency (ER) | payer OTHER ==
[2022-09-19 06:48] LABS: #Basophils 0.1 thou/uL (0.0-0.2); #Eosinphils 0.1 thou/uL (0.0-0.7); #Monocytes 0.7 thou/uL (0.11-0.59); #Neutrophils 8.3 thou/uL (1.40-6.50); %Basophils 0.4 % (0.0-1.0); %Eosinophils 0.9 % (0.0-10.0); %Lymphocytes 18.4 % (21.0-51.0); %Monocytes 6.2 % (0.0-10.0); %Neutrophils 73.7 % (42.0-75.0); Hemoglobin 14.4 g/dL (12.0-16.0); Mean Corpuscular HGB CONC 31.1 g/dL (32.0-36.0); Mean Corpuscular Volume 99.8 fl (78.0-98.0); Platelet Count 304 10x3/uL (130-400); RBC Distribution Width 14.5 % (11.5-14.5); Red Blood Cell (RBC) Count 4.64 mill/uL (4.20-5.40); White Blood Cell (WBC) Count 11.3 10x3/uL (4.8-10.8)
[2022-09-19 07:09] LABS: ALT (SGPT) 10 U/L (8-55); AST (SGOT) 10 U/L (5-34); Albumin 3.5 g/dL (3.4-4.8); Alkaline Phosphatase 93 U/L (40-110); Anion Gap 11 mmol/L (10-20); BUN (Urea Nitrogen) 12 mg/dL (9.8-20.1); Bilirubin, Total 0.2 mg/dL (0.2-1.2); Calc. Creatinine Clearance 0 mL/min (70-130); Calcium 8.8 mg/dL (7.8-10.44); Carbon Dioxide 29 mmol/L (23-31); Chloride 105 mmol/L (98-107); Estimated GFR 86; Globulin 2.9 g/dL (2.4-3.5); Glucose 104 mg/dL (80-115); Protein, Total 6.4 g/dL (5.8-8.1); Sodium 141 mmol/L (136-145)
[2022-09-19] MEDS ORDERED: Ketorolac Tromethamine 30 MG/ML VIAL ONE (07:44)
== END 2022-09-19 08:55 | disposition home or self-care (01) ==
LOC: ERS 06:00
DX: R07.81 Pleurodynia (principal); E03.9 Hypothyroidism, unspecified; J44.9 Chronic obstructive pulmonary disease, unspecified; E78.00 Pure hypercholesterolemia, unspecified; F17.210 Nicotine dependence, cigarettes, uncomplicated
CPT/HCPCS: 36415; 71045; 80053; 83880; 84484; 85025; 85379; 93005; 94760; 96372; J1885